=== PATIENT | male | born 1970 | race Caucasian/White ===

== ENCOUNTER 2024-12-10 08:06 | Inpatient (IN) ==
[2024-12-10] MEDS ORDERED: IOPAMIDOL 100 ML BOTTLE IV ONE (08:07)
[2024-12-10 09:24] LABS: Basophils # (Auto) 0.02 K/mcL (0.00-0.30); Basophils % (Auto) 0.1 % (0.0-2.0); Eosinophils # (Auto) 0.03 K/mcL (0.00-0.70); Eosinophils % (Auto) 0.2 % (0.0-7.0); Hematocrit 42.3 % (40.1-51.0); Hemoglobin 12.4 g/dL (13.7-17.5); Lymphocytes # (Auto) 0.51 K/mcL (1.50-4.80); Lymphocytes % (Auto) 2.9 % (15.5-49.0); Mean Cell Volume 91.6 fL (80.0-100.0); Mean Corpuscular HGB Conc 29.3 g/dL (31.0-36.0); Mean Platelet Volume 9.4 fL (8.8-12.5); Monocytes # (Auto) 0.58 K/mcL (0.10-0.90); Monocytes % (Auto) 3.3 % (1.0-12.0); Neutrophils % (Auto) 91.5 % (38.0-78.0); Platelet Count 301 K/mcL (140-440); RBC 4.62 M/mcL (4.63-6.08); Red Cell Distribution Width 15.8 % (11.5-14.5); WBC 17.6 K/mcL (4.5-11.0)
[2024-12-10 09:31] LABS: INR 1.7 (0.9-1.1)
[2024-12-10 09:43] LABS: ALT/SGPT 27 U/L (<40); AST/SGOT 16 U/L (<40); Albumin 3.4 gm/dL (3.2-5.2); Albumin/Globulin Ratio 1.2 (1.0-2.3); Alkaline Phosphatase 60 U/L (39-117); Bilirubin,Total 0.4 mg/dL (0.1-1.0); Blood Urea Nitrogen 11 mg/dL (6-20); C-Reactive Protein 5.64 mg/dL (0.03-0.80); Calcium 9.1 mg/dL (8.6-10.4); Carbon Dioxide 24 mmol/L (22-30); Chloride 102 mmol/L (96-108); Globulin 2.8 gm/dL (2.2-3.7); Glomerular Filtration Rate 96; Glucose 93 mg/dL (70-105); Potassium 3.7 mmol/L (3.3-5.1); Sodium 137 mmol/L (133-145)
[2024-12-10] MEDS: PIPERACILLIN SODIUM/TAZOBACTAM 3.375 GM in DEXTROSE 5% IN WATER 50 ML IV ONE (10:38)
[2024-12-10] MEDS: VANCOMYCIN PER PHARMACY IV ONE (10:43)
[2024-12-10] MEDS: KETOROLAC 30 MG/ML VIAL IV ONE (11:10)
[2024-12-10] MEDS: VANCOMYCIN 1,500 MG in 0.9 % SODIUM CHLORIDE 500 ML IV SCH (11:15)
[2024-12-10] MEDS: HYDROmorphone 1 MG/ML SYRINGE IV ONE (13:57)
[2024-12-10] MEDS ORDERED: ACETAMINOPHEN 325 MG TABLET PO PRN (16:04)
[2024-12-10] MEDS: [UNRECOGNIZED DRUG - OTHER] AD ONE (16:07)
[2024-12-10 16:55] LABS: Creatine Kinase 52 U/L (24-195)
[2024-12-10] MEDS: IPRATROPIUM/ALBUTEROL 3 ML AMPUL.NEB NEB SCH (16:55)
[2024-12-10] MEDS: LACTATED RINGERS 1,000 ML IV SCH (17:33)
[2024-12-10] MEDS: PIPERACILLIN SODIUM/TAZOBACTAM 4.5 GM in DEXTROSE 5% IN WATER 100 ML IV SCH (17:33)
[2024-12-10 17:56] LABS: Appearance,Urine Clear (Clear); Bacteria,Urine 0 /hpf (0); Bilirubin,Urine Negative (Negative); Color,Urine Yellow; Glucose,Urine (UA) Negative (Negative); Ketones,Urine 15 mg/dL (Negative); Leukocyte Esterase,Urine Negative /uL (Negative); Nitrate,Urine Negative (Negative); Protein,Urine Negative (Negative); Specific Gravity,Urine 1.015 (1.000-1.035); Urine Blood Trace-intact ery/mcL (Negative); Urine RBC 0 /hpf (0-3); Urine Squamous Epithelial Cell 0 /hpf (0-4); Urine WBC 5 /hpf (0-4); Urobilinogen,Urine Normal
[2024-12-10] MEDS: RIVAROXABAN 20 MG TABLET PO SCH (20:19)
[2024-12-10] MEDS: ATENOLOL 50 MG TABLET PO SCH (20:19)
[2024-12-10] MEDS: traZODone HCL 50 MG TABLET PO SCH (20:20)
[2024-12-10] MEDS: LITHIUM CARBONATE 150 MG CAPSULE PO SCH (20:21)
[2024-12-10] MEDS: DOCUSATE SODIUM 100 MG CAPSULE PO SCH (20:21)
[2024-12-10] MEDS: SENNOSIDES 1 TABLET PO SCH (20:21)
[2024-12-10] MEDS: 0.9 % SODIUM CHLORIDE 10 ML SYRINGE IV SCH (20:22)
[2024-12-10 20:39] LABS: Amphetamine Screen,Urine None detected; Barbiturate Screen,Urine None detected; Benzodiazepines Screen,Urine Suspect positive; Cannabinoid Screen,Urine Suspect Positive; Cocaine Screen,Urine None detected; Fentanyl, Urine Screen None Detected; Opiate Screen,Urine None detected; Oxycodone, Urine Screen None detected; Phencyclidine Screen,Urine None detected
[2024-12-10] MEDS: ALPRAZolam 0.5 MG TABLET PO ONE (20:51)
[2024-12-10] MEDS: HYDROmorphone 1 MG/ML SYRINGE IV PRN (23:06)
[2024-12-11] MEDS: ALPRAZolam 0.5 MG TABLET PO SCH (05:12)
[2024-12-11 06:35] LABS: Hematocrit 39.3 % (40.1-51.0); Hemoglobin 11.6 g/dL (13.7-17.5); Mean Cell Volume 92.3 fL (80.0-100.0); Mean Corpuscular HGB Conc 29.5 g/dL (31.0-36.0); Mean Platelet Volume 9.1 fL (8.8-12.5); Platelet Count 276 K/mcL (140-440); RBC 4.26 M/mcL (4.63-6.08); Red Cell Distribution Width 15.8 % (11.5-14.5); WBC 12.8 K/mcL (4.5-11.0)
[2024-12-11 06:36] LABS: ALT/SGPT 23 U/L (<40); AST/SGOT 15 U/L (<40); Albumin 3.1 gm/dL (3.2-5.2); Albumin/Globulin Ratio 1.2 (1.0-2.3); Alkaline Phosphatase 52 U/L (39-117); Bilirubin,Total 0.3 mg/dL (0.1-1.0); Blood Urea Nitrogen 11 mg/dL (6-20); Calcium 8.8 mg/dL (8.6-10.4); Carbon Dioxide 26 mmol/L (22-30); Chloride 103 mmol/L (96-108); Creatine Kinase 52 U/L (24-195); Globulin 2.6 gm/dL (2.2-3.7); Glomerular Filtration Rate 96; Glucose 71 mg/dL (70-105); Potassium 3.6 mmol/L (3.3-5.1); Sodium 139 mmol/L (133-145)
[2024-12-11] MEDS: PANTOPRAZOLE 40 MG TABLET PO SCH (07:44)
[2024-12-11 07:55] LABS: Anisocytosis 1+ (None Seen); Band Neutrophils % 1 % (0-10); Eosinophils % (Manual) 1 % (0-7); Hypochromasia 1+ (None Seen); Lymphocytes % 8 % (15-49); Monocytes % (Manual) 4 % (1-12); Platelet Estimate NORMAL (Normal); RBC Morphology NORMAL (Normal); Reactive Lymphocytes 3 % (0-2); Segmented Neutrophils % 83 % (38-78)
[2024-12-11] MEDS ORDERED: oxyCODONE/APAP 5/325MG TABLET PO PRN (09:50)
[2024-12-11] MEDS: buPROPion 150 MG TAB.XL.24H PO SCH (10:00)
[2024-12-11] MEDS: DEXAMETHASONE 4 MG TABLET PO SCH (10:02)
[2024-12-11] MEDS: VANCOMYCIN 2,000 MG in 0.9 % SODIUM CHLORIDE 500 ML IV ONE (11:07)
[2024-12-11] MEDS: traMADol 50 MG TABLET PO PRN (13:59)
[2024-12-11] MEDS: VANCOMYCIN 1,500 MG in 0.9 % SODIUM CHLORIDE 500 ML IV SCH (22:03)
[2024-12-12 06:07] LABS: Hematocrit 40.6 % (40.1-51.0); Mean Cell Volume 92.7 fL (80.0-100.0); Mean Corpuscular HGB Conc 29.6 g/dL (31.0-36.0); Platelet Count 310 K/mcL (140-440); RBC 4.38 M/mcL (4.63-6.08); Red Cell Distribution Width 15.7 % (11.5-14.5)
[2024-12-12 07:02] LABS: ALT/SGPT 25 U/L (<40); AST/SGOT 16 U/L (<40); Albumin 3.3 gm/dL (3.2-5.2); Albumin/Globulin Ratio 1.3 (1.0-2.3); Alkaline Phosphatase 50 U/L (39-117); Bilirubin,Total 0.3 mg/dL (0.1-1.0); Blood Urea Nitrogen 7 mg/dL (6-20); Calcium 9.1 mg/dL (8.6-10.4); Carbon Dioxide 28 mmol/L (22-30); Chloride 104 mmol/L (96-108); Globulin 2.6 gm/dL (2.2-3.7); Glomerular Filtration Rate 96; Glucose 85 mg/dL (70-105); Potassium 4.1 mmol/L (3.3-5.1); Sodium 139 mmol/L (133-145)
[2024-12-12 08:41] LABS: Band Neutrophils % 2 % (0-10); Eosinophils % (Manual) 2 % (0-7); Hypochromasia 1+ (None Seen); Lymphocytes % 8 % (15-49); Monocytes % (Manual) 2 % (1-12); Platelet Estimate NORMAL (Normal); RBC Morphology ABNORMAL (Normal); Reactive Lymphocytes 1 % (0-2); Segmented Neutrophils % 85 % (38-78)
[2024-12-12] MEDS ORDERED: VANCOMYCIN PER PHARMACY IV SCH (10:30)
[2024-12-13 06:24] LABS: Hemoglobin 11.6 g/dL (13.7-17.5); Mean Cell Volume 93.5 fL (80.0-100.0); Mean Platelet Volume 9.3 fL (8.8-12.5); Platelet Count 298 K/mcL (140-440); RBC 4.28 M/mcL (4.63-6.08); Red Cell Distribution Width 15.8 % (11.5-14.5); WBC 12.2 K/mcL (4.5-11.0)
[2024-12-13 06:44] LABS: ALT/SGPT 26 U/L (<40); AST/SGOT 20 U/L (<40); Albumin 3.3 gm/dL (3.2-5.2); Albumin/Globulin Ratio 1.4 (1.0-2.3); Alkaline Phosphatase 46 U/L (39-117); Bilirubin,Total 0.3 mg/dL (0.1-1.0); Blood Urea Nitrogen 6 mg/dL (6-20); Calcium 8.7 mg/dL (8.6-10.4); Carbon Dioxide 28 mmol/L (22-30); Chloride 103 mmol/L (96-108); Globulin 2.4 gm/dL (2.2-3.7); Glomerular Filtration Rate 84; Glucose 76 mg/dL (70-105); Potassium 3.4 mmol/L (3.3-5.1); Sodium 141 mmol/L (133-145)
[2024-12-13 07:53] LABS: Anisocytosis 1+ (None Seen); Eosinophils % (Manual) 1 % (0-7); Hypochromasia OCC (None Seen); Lymphocytes % 14 % (15-49); Monocytes % (Manual) 3 % (1-12); Platelet Estimate NORMAL (Normal); Polychromasia FEW (None Seen); RBC Morphology ABNORMAL (Normal); Reactive Lymphocytes 1 % (0-2); Segmented Neutrophils % 81 % (38-78)
[2024-12-13 10:54] LABS: Lithium Test 0.5 mmol/L
[2024-12-13] MEDS: diphenhydrAMINE 50 MG/ML VIAL IV SCH (10:56)
[2024-12-13 16:38] LABS: Basophils # (Auto) 0.02 K/mcL (0.00-0.30); Basophils % (Auto) 0.2 % (0.0-2.0); Eosinophils # (Auto) 0.02 K/mcL (0.00-0.70); Eosinophils % (Auto) 0.2 % (0.0-7.0); Hematocrit 38.7 % (40.1-51.0); Hemoglobin 11.3 g/dL (13.7-17.5); Lymphocytes # (Auto) 0.38 K/mcL (1.50-4.80); Lymphocytes % (Auto) 3.2 % (15.5-49.0); Mean Cell Volume 92.4 fL (80.0-100.0); Mean Corpuscular HGB Conc 29.2 g/dL (31.0-36.0); Monocytes % (Auto) 3.4 % (1.0-12.0); Neutrophils % (Auto) 88.8 % (38.0-78.0); Platelet Count 290 K/mcL (140-440); RBC 4.19 M/mcL (4.63-6.08); Red Cell Distribution Width 15.9 % (11.5-14.5); WBC 11.9 K/mcL (4.5-11.0)
[2024-12-13 16:48] LABS: INR 1.1 (0.9-1.1); Partial Thromboplastin Time 27.9 sec (20.0-37.0); Prothrombin Time 14.9 sec (11.9-14.5)
[2024-12-13] MEDS: HEPARIN SOD,PORK IN 0.45% NACL 500 ML IV SCH (16:53)
[2024-12-13] MEDS: HEPARIN SOD,PORK IN 0.45% NACL 500 ML IV ONE (16:59)
[2024-12-13 17:23] LABS: Anti-XA-UFH 0.68 IU/mL (0.30-0.60)
[2024-12-13 17:33] VITALS: TEMP 97.8; O2SAT 98
[2024-12-13] MEDS: POTASSIUM CHLORIDE 20 MEQ TABLET PO SCH (17:40)
[2024-12-13] MEDS: ONDANSETRON 4 MG/2 ML VIAL IV PRN (17:43)
[2024-12-14] MEDS ORDERED: FUROSEMIDE 20 MG TABLET PO SCH (09:00)
[2024-12-15 13:10] LABS: Alprazolam Confirm, Urine 661 ng/mL (Cutoff=100); Alprazolam, Urine Positive; Clonazepam, Urine Negative (Cutoff=100); Flurazepam, Urine Negative (Cutoff=100); Lorazepam, Urine Negative (Cutoff=100); Midazolam, Urine Negative (Cutoff=100); Nordiazepam, Urine Negative (Cutoff=100); Oxazepam, Urine Negative (Cutoff=100); Temazepam, Urine Negative (Cutoff=100); Triazolam, Urine Negative (Cutoff=100)
== END 2024-12-13 17:49 | disposition short-term general hospital (02) | DRG 872 ==
LOC: ED 08:06 → MEDSUR 16:01
PROVIDERS: ADMIT Internal Medicine Critical Care Medicine; ATTEND Internal Medicine Critical Care Medicine